=== PATIENT | female | born 1950 | race American Indian/Alaskan Native ===

== ENCOUNTER 2020-09-17 20:45 | Emergency (ER) | payer MEDICARE ==
--- NOTE | 2020-09-17 21:29 | Event Note ---
ED Screening Note ED Screening Note: last night began having blurry vision states she felt light-headed states she took her BP was elevated she took it at 6:30 PM and it was 190/90 states she took an extra blood pressure pill and it improved to 170/90 she states her BP then began to rise again states she called her PCP and was advised to be seen in the ED states she took another BP pill she states she changed her diet and was not taking the BP medication regularly, states last week began taking her BP medication again no PHILLIP currently no CP no SOB PMHx HTN, GERD allergy: codeine This initial assessment/diagnostic orders/clinical plan/treatment(s) is/are subject to change based on patients health status, clinical progression and re- assessment by fellow clinical providers in the ED. Further treatment and workup at subsequent clinical providers discretion. Patient/guardian urged not to elope from the ED as their condition may be serious if not clinically assessed and managed. Initial orders include: labs, UA, EKG, CT head
[2020-09-17 22:03] LABS: Basophils % (Auto) 0.4 % (0.0-1.8); Eosinophils # (Auto) 0.1 K/mm3 (0.0-0.4); Hematocrit 41.5 % (30.3-42.9); Hemoglobin 13.7 gm/dl (10.1-14.3); Lymphocytes # (Auto) 2.5 K/mm3 (1.2-5.4); Lymphocytes % (Auto) 37.3 % (13.4-35.0); Mean Corpuscular HGB Conc 33 % (30-34); Mean Corpuscular Volume 86 fl (79-97); Monocytes # (Auto) 0.7 K/mm3 (0.0-0.8); Platelet Count 298 K/mm3 (140-440); Red Blood Count 4.82 M/mm3 (3.65-5.03)
[2020-09-17 22:24] LABS: Alanine Aminotransferase 13 units/L (7-56); Albumin 4.7 g/dL (3.9-5); BUN/Creatinine Ratio 33; Blood Urea Nitrogen 26 mg/dL (7-17); Calcium 9.8 mg/dL (8.4-10.2); Hemolysis Index 5
--- NOTE | 2020-09-17 22:29 | Cat Scan Report ---
CT HEAD/BRAIN WO CON INDICATION / CLINICAL INFORMATION: Lightheadedness, elevated BP, and blurry vision. TECHNIQUE: All CT scans at this location are performed using CT dose reduction for ALARA by means of automated e xposure control. COMPARISON: 08/15/15. FINDINGS: The ventricular system is normal in size and configuration. No focal lesion or mass effect is seen. T here is no evidence of intracranial hemorrhage or acute major vessel occlusion. The calvarium is intact. The visualized paranasal sinuses and mastoid air cells are clear. IMPRESSION: No acute abnormality or significant change. Signer Name: Antony Willoughby MD Signed: 09/17/2020 10:25 PM Workstation Name: [id number]
[2020-09-17 23:01] LABS: Bilirubin,Urine NEG (Negative); Blood,Urine MOD (Negative); Color,Urine Colorless (Yellow); Mucus,Urine FEW /HPF; Protein,Urine <15 mg/dL mg/dL (Negative); Urobilinogen,Urine < 2.0 mg/dL (<2.0); WBC,Urine < 1.0 /HPF (0.0-6.0)
--- NOTE | 2020-09-18 00:40 | Emergency Department Report ---
ED General Adult HPI - General Chief complaint: High BP Stated complaint: hypertension Time Seen by Provider: 09/17/20 21:23 Source: patient, EMS Mode of arrival: Ambulatory Limitations: No Limitations - History of Present Illness Initial comments: 69-year-old female, history of hypertension, presents to ED with elevated blood pressure. Patient states her doctor took her off her blood pressure medications approximately 1 month ago because her blood pressure was controlled with improvement in her diet. Patient states she stopped eating salt in her foods. Four days ago, patient reports she bought and decided to try some new sausages. Yesterday, she reports that she ate chicken with soy sauce. Patient states today she felt somewhat lightheaded. She states she took her blood pressure and it was elevated, 190/100s. Patient states she called her PCP and was advised to restart her blood pressure medication, losartan/HCTZ 50/12.5 mg. Patient states that she took the first pill this morning. She states she took 2 more BP pills today for a total of 3 pills. Patient states her blood pressure did improve, however she took it again and it was elevated again, so she called EMS. SBP was in the 200s with EMS. Patient denies any headache, chest pain, shortness of breath. She denies any dizziness or lightheadedness currently. -: This morning Location: head Improves with: medication Worsens with: other (salty foods) Associated Symptoms: denies: chest pain, diaphoresis, headaches, nausea/vomiting, shortness of breath - Related Data Home Medications Medication Instructions Recorded Confirmed Last Taken Dorzolamide HCl/Timolol Maleat 10 ml OU QDAY 08/15/15 08/15/15 08/15/15 [Dorzolamide-Timolol Eye Drops] Latanoprost 0.005% [Xalatan 0.005%] 1 drop OU QPM 08/15/15 08/15/15 08/15/15 Valsartan/Hydrochlorothiazide 1 tab PO QDAY 08/15/15 08/15/15 08/15/15 [Diovan Hct 80-12.5 mg] Previous Rx's Medication Instructions Recorded Last Taken Type Meclizine [Antivert] 25 mg PO TID PRN #10 tablet 08/15/15 Unknown Rx Ondansetron [Zofran Odt] 4 mg PO Q4H PRN #10 tab.rapdis 08/15/15 Unknown Rx Allergies Allergy/AdvReac Type Severity Reaction Status Date / Time codeine Allergy abd Verified 07/20/14 17:44 pain/vomiting ED Review of Systems ROS: Stated complaint: hypertension Other details as noted in HPI Comment: All other systems reviewed and negative Respiratory: denies: shortness of breath Cardiovascular: denies: chest pain Gastrointestinal: denies: nausea, vomiting Neurological: denies: headache, weakness, numbness ED Past Medical Hx - Past Medical History Previous Medical History?: Yes Hx Hypertension: Yes Hx Congestive Heart Failure: No Hx Diabetes: No Hx Asthma: No Hx COPD: No Additional medical history: chronic back pain fibromyalgia. DDD - Surgical History Past Surgical History?: Yes Hx Cholecystectomy: Yes Additional Surgical History: hysterectomy, myomectomy - Social History Smoking Status: Never Smoker Substance Use Type: None - Medications Home Medications: Home Medications Medication Instructions Recorded Confirmed Last Taken Type Dorzolamide HCl/Timolol Maleat 10 ml OU QDAY 08/15/15 08/15/15 08/15/15 History [Dorzolamide-Timolol Eye Drops] Latanoprost 0.005% [Xalatan 0.005%] 1 drop OU QPM 08/15/15 08/15/15 08/15/15 History Meclizine [Antivert] 25 mg PO TID PRN #10 tablet 08/15/15 Unknown Rx Ondansetron [Zofran Odt] 4 mg PO Q4H PRN #10 tab.rapdis 08/15/15 Unknown Rx Valsartan/Hydrochlorothiazide 1 tab PO QDAY 08/15/15 08/15/15 08/15/15 History [Diovan Hct 80-12.5 mg] ED Physical Exam - General Limitations: No Limitations General appearance: alert, in no apparent distress - Head Head exam: Present: atraumatic, normocephalic - Eye Eye exam: Present: normal appearance, EOMI - ENT ENT exam: Present: mucous membranes moist - Neck Neck exam: Present: normal inspection - Respiratory Respiratory exam: Present: normal lung sounds bilaterally. Absent: respiratory distress - Cardiovascular Cardiovascular Exam: Present: regular rate, normal rhythm - GI/Abdominal GI/Abdominal exam: Absent: distended - Extremities Exam Extremities exam: Present: normal inspection - Neurological Exam Neurological exam: Present: alert, oriented X3, CN II-XII intact. Absent: motor sensory deficit - Psychiatric Psychiatric exam: Present: normal affect, normal mood - Skin Skin exam: Present: warm, dry, intact, normal color ED Course Vital Signs 09/17/20 09/18/20 21:18 00:35 Temperature 98.4 F 98.4 F Pulse Rate 66 65 Respiratory 18 18 Rate Blood Pressure 170/89 Blood Pressure 160/92 [Right] O2 Sat by Pulse 96 98 Oximetry ED Medical Decision Making - Lab Data Result diagrams: 09/17/20 21:49 09/17/20 21:49 - EKG Data -: EKG Interpreted by Me EKG shows normal: sinus rhythm, QRS complexes, ST-T waves Rate: normal - EKG Data Interpretation: other ([facility]) - Radiology Data Radiology results: report reviewed, image reviewed - Medical Decision Making 69-year-old female presents to ED with asymptomatic hypertension, possibly secondary to increased sodium intake. Blood pressure is slightly elevated here in the ED. Patient does not require any treatment of her BP at this time. Labs unremarkable. CT head is negative. Patient has no neuro deficits on exam. Patient advised to take 1 pill daily as directed and follow-up with her PCP. Return precautions given. Will discharge at this time. - Differential Diagnosis Hypertension, intracranial abnormality, renal failure Critical care attestation.: If time is entered above; I have spent that time in minutes in the direct care of this critically ill patient, excluding procedure time. ED Disposition Clinical Impression: Uncontrolled hypertension Disposition: DC-01 TO HOME OR SELFCARE Is pt being admited?: No Condition: Stable Instructions: Preventing Hypertension, Managing Your Hypertension, Hypertension (ED) Referrals: PRIMARY CARE, [Primary Care Provider] - [facility] Time of Disposition: 00:43
[2020-09-18 02:18] VITALS: BP 160/92
== END 2020-09-18 00:50 | disposition home or self-care (01) ==
LOC: ED 20:45
DX: I10 Essential (primary) hypertension (principal); Z90.49 Acquired absence of other specified parts of digestive tract; Z90.710 Acquired absence of both cervix and uterus; Z98.890 Other specified postprocedural states; Z79.899 Other long term (current) drug therapy; Z88.8 Allergy status to other drugs, medicaments and biological substances
CPT/HCPCS: 36415; 70450; 80053; 81001; 84484; 85025; 93005